=== PATIENT | male | born 1940 | race Caucasian/White ===

== ENCOUNTER 2018-10-04 00:08 | Emergency (ER) | payer MEDICARE ==
[2018-10-04] MEDS ORDERED: IPRATROPIUM/ALBUTEROL SULFATE 3 ML SOLUTION IH ONE (00:40)
[2018-10-04 01:17] LABS: BASOPHILS % (AUTO) 0.3 % (0.0-5.0); EOSINOPHILS % (AUTO) 0.6 % (0.0-8.0); HEMATOCRIT 41.5 % (42-54); LYMPHOCYTES % (AUTO) 24.4 % (21.0-51.0); MEAN CORPUSCULAR HEMOGLOBIN 33.1 pg (27.0-33.0); MEAN CORPUSCULAR HGB CONC 34.6 g/dL (32.0-36.0); MEAN CORPUSCULAR VOLUME 95.7 fL (79-99); MONOCYTES % (AUTO) 10.4 % (3.0-13.0); NEUTROPHILS % (AUTO) 64.3 % (40.0-77.0); NUCLEATED RED BLOOD CELLS 0.1 % (0.0-0.19); PLATELET COUNT (AUTO) 120 K/uL (130-400); RED BLOOD CELL COUNT(AUTO) 4.34 MIL/uL (4.50-6.20); RED CELL DISTRIBUTION WIDTH 12.9 % (11.0-15.5); WHITE BLOOD COUNT (AUTO) 3.8 K/uL (4.8-10.8)
[2018-10-04 01:30] LABS: CREATININE 0.9 mg/dL (0.5-1.5); POTASSIUM 4.5 mmol/L (3.5-5.1)
[2018-10-04 01:35] LABS: ALBUMIN 3.2 g/dL (3.5-5.0); TOTAL PROTEIN, SERUM 6.3 g/dL (6.0-8.3)
[2018-10-04] MEDS ORDERED: ALBUTEROL SULFATE 0.083% 2.5 MG/3 ML INH IH ONE ×2 (01:41→04:30)
[2018-10-04] MEDS ORDERED: OSELTAMIVIR PHOSPHATE 75 MG CAP ONE (04:35)
[2018-10-04] MEDS ORDERED: ONDANSETRON ODT 4 MG TAB ONE (04:36)
== END 2018-10-04 05:07 | disposition home or self-care (01) ==
LOC: EDH 00:08
DX: J10.1 Influenza due to other identified influenza virus with other respiratory manifestations (principal); I48.91 Unspecified atrial fibrillation; Z96.653 Presence of artificial knee joint, bilateral
CPT/HCPCS: 36415; 71045; 71046; 80053; 85025; 87804; 94640

== ENCOUNTER 2020-06-14 03:37 | Inpatient (IN) | payer MEDICARE ==
[~2020-06-14] VITALS: Ht 180.3 cm; Wt 84.2 kg
[2020-06-14 04:07] LABS: BASOPHILS % (AUTO) 0.3 % (0.0-5.0); EOSINOPHILS % (AUTO) 0.3 % (0.0-8.0); HEMATOCRIT 41.7 % (42-54); LYMPHOCYTES % (AUTO) 9.3 % (21.0-51.0); MEAN CORPUSCULAR HEMOGLOBIN 31.9 pg (27.0-33.0); MEAN CORPUSCULAR HGB CONC 32.6 g/dL (32.0-36.0); MEAN CORPUSCULAR VOLUME 97.7 fL (79-99); MONOCYTES % (AUTO) 5.2 % (3.0-13.0); NEUTROPHILS % (AUTO) 84.5 % (40.0-77.0); PLATELET COUNT (AUTO) 181 K/uL (130-400); RED BLOOD CELL COUNT(AUTO) 4.27 MIL/uL (4.50-6.20); WHITE BLOOD COUNT (AUTO) 7.7 K/uL (4.8-10.8)
[2020-06-14 04:16] LABS: CREATININE 1.2 mg/dL (0.5-1.5); POTASSIUM 4.8 mmol/L (3.5-5.1)
[2020-06-14 04:20] LABS: ALBUMIN 3.5 g/dL (3.5-5.0); BILIRUBIN,TOTAL 0.7 mg/dL (0.2-1.0); TOTAL PROTEIN, SERUM 7.4 g/dL (6.0-8.3)
[2020-06-14] MEDS ORDERED: ONDANSETRON HCL 4 MG/2 ML VIAL ONE (04:23)
[2020-06-14] MEDS ORDERED: MORPHINE SULFATE 2 MG/ML 1ML SYG ONE (04:23)
[2020-06-14] MEDS ORDERED: MORPHINE SULFATE 4 MG/1ML SYG ONE (05:33)
[2020-06-14] MEDS ORDERED: HYDROMORPHONE HCL 0.5 MG/0.5 ML ML ONE (07:00)
[2020-06-14] MEDS ORDERED: GUAIFENESIN-DM 200/20 MG 10 ML PO PRN (07:15)
[2020-06-14] MEDS ORDERED: ONDANSETRON HCL 4 MG/2 ML VIAL IVP PRN (07:15)
[2020-06-14] MEDS ORDERED: DiphenhydrAMINE HCL 50 MG/ML VIAL IV PRN (07:15)
[2020-06-14] MEDS ORDERED: ACETAMINOPHEN 650 MG SUPPOSITORY RC PRN (07:15)
[2020-06-14] MEDS ORDERED: HYDRALAZINE HCL 20 MG/ML VIAL IV PRN (07:15)
[2020-06-14] MEDS ORDERED: LACTULOSE 20 GM/30 ML UDCUP PO PRN (07:15)
[2020-06-14] MEDS ORDERED: HYDROMORPHONE 4MG/ML 1ML VIAL IVP PRN (07:15)
[2020-06-14] MEDS ORDERED: MAG HYDROX/AL HYDROX/SIMETH ES 30 ML SUSP UDCUP PO PRN (07:15)
[2020-06-14] MEDS ORDERED: NITROGLYCERIN 0.4 MG SL TAB SL PRN (07:15)
[2020-06-14] MEDS: SODIUM CHLORIDE 0.9% 1000ML 1,000 ML IV SCH ×2 (07:15→20:35)
[2020-06-14] MEDS ORDERED: ZOLPIDEM TARTRATE 5 MG TAB PO PRN (07:15)
[2020-06-14] MEDS ORDERED: MORPHINE SULFATE 4 MG/1ML SYG IV PRN (07:15)
[2020-06-14] MEDS ORDERED: HYDROMORPHONE HCL 0.5 MG/0.5 ML ML IVP PRN (07:30)
[2020-06-14] MEDS: ENOXAPARIN SODIUM 80 MG/0.8 ML SQ SCH ×2 (09:00→21:00)
[2020-06-14] MEDS: ENOXAPARIN SODIUM 1 MG/KG SQ SCH ×2 (09:00→21:00)
[2020-06-14 11:43] LABS: APPEARANCE,URINE Clear (CLEAR); BILIRUBIN,URINE Negative (NEGATIVE); COLOR,URINE Yellow (YELLOW); GLUCOSE, URINE (UA) Negative (NEGATIVE); KETONES,URINE Negative (NEGATIVE); LEUKOCYTE ESTERASE ,URINE Small (NEGATIVE); NITRATE,URINE Positive (NEGATIVE); OCCULT BLOOD,URINE Trace (NEGATIVE); PROTEIN,URINE Trace mg/dL (NEGATIVE)
[2020-06-14 12:12] LABS: BACTERIA,URINE Rare /HPF (None Seen); RBC,URINE 0-1 /HPF (0-1); SQUAMOUS EPITHELIAL CELL,UR Rare /HPF (0-2)
--- NOTE | 2020-06-14 16:49 | NUR ---
CHUYITA PLAN PATIENT IN ER UNABLE TO SEE PATIENT CALLED PATIENT PHONE NUMBER. TRIED TO CONFIRM WHO I WAS SPEAKING TO. PATIENT UPSET. CURSED AND HUNG UP. VILMA WILL CONTINUE TO FOLLOW. WILL TRY ONCE PATIENT HAS A ROOM. Addendum: 06/14/20 at 1651 by EUNICE ENRIQUEZ RN CM Amended: Links added.
[2020-06-14] MEDS ORDERED: IOHEXOL 350 MG/ML 100ML INFUS..BTL IV ONE (22:11)
[2020-06-15 06:10] LABS: BASOPHILS % (AUTO) 0.3 % (0.0-5.0); EOSINOPHILS % (AUTO) 2.5 % (0.0-8.0); HEMATOCRIT 42.3 % (42-54); LYMPHOCYTES % (AUTO) 12.5 % (21.0-51.0); MEAN CORPUSCULAR HEMOGLOBIN 32.2 pg (27.0-33.0); MEAN CORPUSCULAR HGB CONC 32.2 g/dL (32.0-36.0); MONOCYTES % (AUTO) 8.9 % (3.0-13.0); NEUTROPHILS % (AUTO) 75.7 % (40.0-77.0); PLATELET COUNT (AUTO) 139 K/uL (130-400); RED BLOOD CELL COUNT(AUTO) 4.23 MIL/uL (4.50-6.20); RED CELL DISTRIBUTION WIDTH 13.2 % (11.0-15.5); WHITE BLOOD COUNT (AUTO) 6.8 K/uL (4.8-10.8)
[2020-06-15 06:17] LABS: ALBUMIN 3.3 g/dL (3.5-5.0); CREATININE 1.7 mg/dL (0.5-1.5); POTASSIUM 5.1 mmol/L (3.5-5.1); TOTAL PROTEIN, SERUM 6.9 g/dL (6.0-8.3)
[2020-06-15] MEDS ORDERED: ONDANSETRON HCL 4 MG/2 ML VIAL ONE (07:28)
[2020-06-15] MEDS ORDERED: MORPHINE SULFATE 4 MG/1ML SYG ONE (07:29)
[2020-06-15 10:00] VITALS: BP 96/57
[2020-06-15] MEDS ORDERED: PHARMACY COMMUNICATION MISC SCH (10:00)
[2020-06-15] MEDS ORDERED: HEPARIN 25000 UNITS/250 ML D5W 250 ML IV PRN (10:15)
[2020-06-15] MEDS ORDERED: CEFTRIAXONE SODIUM 1 GM IVP SCH (12:45)
[2020-06-15] MEDS ORDERED: ENOXAPARIN SODIUM 80 MG/0.8 ML SQ SCH (13:00)
[2020-06-15] MEDS: SODIUM CHLORIDE 0.9% 1000ML 1,000 ML IV SCH ×2 (13:18→23:15)
--- NOTE | 2020-06-15 15:46 | NUR ---
CHUYITA PLAN VISITED WITH PATIENT. PATIENT SLEEPING. SINCE HE WAS UPSET YESTERDAY AND CUSSING. VILMA WILL CONTINUE TO FOLLOW. Addendum: 06/15/20 at 1547 by EUNICE ENRIQUEZ RN CM Amended: Links added.
[2020-06-15 16:40] VITALS: BP 124/72
[2020-06-15 20:00] VITALS: BP 123/79
[2020-06-15] MEDS ORDERED: HEPARIN SODIUM 5000UNIT/ML 1ML VIAL SQ PRN (20:00)
[2020-06-15 23:33] VITALS: BP 113/68
[2020-06-16] MEDS: HEPARIN 25000 UNITS/250 ML D5W 250 ML IV SCH ×2 (02:19→20:20)
[2020-06-16 03:21] VITALS: BP 98/61
[2020-06-16] MEDS: SODIUM CHLORIDE 0.9% 1000ML 1,000 ML IV SCH (04:22)
[2020-06-16 07:53] VITALS: BP 119/68
--- NOTE | 2020-06-16 08:45 | NUR ---
AM ASSESSMENT PT SITTING IN BED. A/O X 3. NO SOB. NO DISTRESS NOTED. DENIES CHEST PAIN OR DISCOMFORT. DENIES PALPITATIONS. TELE: SR. DENIES N/V AND/OR DIARRHEA. 0.9% NACL INFUSING @ 75 ML/HR. HEPARIN GTT @ 17 UNITS/KG/HR (14.1 ML/HR). PTT DUE @ 0800. BEDREST REINFORCED. INSTRUCTED TO CALL FOR ASSISTANCE. CALL GERMAINE W/IN REACH.
[2020-06-16] MEDS ORDERED: CEFTRIAXONE SODIUM 1 GM IVP SCH (09:00)
[2020-06-16 11:50] VITALS: BP 115/72
[2020-06-16 15:20] VITALS: BP 110/71
--- NOTE | 2020-06-16 16:57 | NUR ---
DCP CM met with pt this morning discussed dc plans. Pt is independent prior to admission, lives at home alone. Denies any equipments/services. Feels safe to go back home, still drives, arranges own needs. Pt verbalized he has a son that lives in [place], [place] [employer] [phone] in case of emergency. DC plan to home once stable. CM to continue to follow up. Addendum: 06/16/20 at 1658 by SOLE HELTON LVN CM Amended: Links added.
[2020-06-16 20:10] VITALS: BP 99/57
[2020-06-16] MEDS ORDERED: LEVOFLOXACIN 500 MG/D5W 100 ML 100 ML IV SCH (22:45)
[2020-06-16 23:12] VITALS: BP 109/66
[2020-06-17] VITALS (20 sets, daily range): BP systolic 107–142; BP diastolic 65–91
[2020-06-17 05:04] LABS: BASOPHILS % (AUTO) 0.3 % (0.0-5.0); EOSINOPHILS % (AUTO) 1.4 % (0.0-8.0); HEMATOCRIT 35.2 % (42-54); LYMPHOCYTES % (AUTO) 14.7 % (21.0-51.0); MEAN CORPUSCULAR HEMOGLOBIN 31.9 pg (27.0-33.0); MEAN CORPUSCULAR HGB CONC 32.7 g/dL (32.0-36.0); MEAN CORPUSCULAR VOLUME 97.8 fL (79-99); NEUTROPHILS % (AUTO) 72.4 % (40.0-77.0); PLATELET COUNT (AUTO) 158 K/uL (130-400); WHITE BLOOD COUNT (AUTO) 6.3 K/uL (4.8-10.8)
[2020-06-17 05:19] LABS: CREATININE 1.6 mg/dL (0.5-1.5); POTASSIUM 4.1 mmol/L (3.5-5.1)
[2020-06-17 05:20] LABS: INR 1.06 (0.85-1.15); PROTHROMBIN TIME 11.4 SEC (9.6-11.6)
--- NOTE | 2020-06-17 08:50 | NUR ---
PER SHEETING PULLER NURSE HEPRIN STOPPED AT 0645 TODAY
[2020-06-17] MEDS ORDERED: IODIXANOL 320 MG/ML 100 ML VIAL ONE (08:54)
[2020-06-17] MEDS ORDERED: LIDOCAINE HCL 1% MDV 50ML VIAL ONE (08:54)
[2020-06-17] MEDS: LEVOFLOXACIN 500 MG/D5W 100 ML 100 ML IV SCH (08:55)
[2020-06-17] MEDS ORDERED: FENTANYL CITRATE PF 50 MCG/1 ML 2ML VIAL ONE ×2 (10:05→21:46)
--- NOTE | 2020-06-17 16:03 | NUR ---
RD NOTIFICATION Pt admitted due to rt lower extremity DVT During admission pt was found to have elevated PSA with possible prostate cancer. Heparin d/c at 0645 on 06/17/20 as per EMR. Pt is currently NPO. Pt in AM received CLD and ate 100% PO Previous diet order HH- Vegan. Pt ate 100% as per EMR Pending biopsy, possible left nephrostomy tube and cystoscopy as per EMR Pt sated being an SOS vegan. Pt does not consume, oil, salt, sugar or any other animal product. Prior to admission pt denied lack of appetite or poor PO intake. Pt was encouraged to contact foodservice staff and make request for meals according to diet order Pt's BMI is adequate for age Pt stated he takes a mineral pill that contains Mg, Zinc, and Calcium Pt also takes B12 at home RD RECOMMENDATION: B12 supplementation Heart Healthy Vegan diet with no concentrated sweets Monitor PO intake RD will continue to follow pt's status LABS: NA 141, BUN 27, CREAT 1.6, GFR 44, ALB 3.3, TOT PRO 6.9, PSA 497 Addendum: 06/17/20 at [address] Amended: Links added.
--- NOTE | 2020-06-17 17:46 | NUR ---
FLEET ENEMA GIVEN X 1 AT 1615 ,PER STANDING ORDER TO GIVE 2 HRS PRIOR TO PROCEDURE
[2020-06-17] MEDS ORDERED: SUCCINYLCHOLINE 200MG/10ML SYR ONE (21:05)
[2020-06-17] MEDS ORDERED: LIDOCAINE PF 2% 5ML ABBOJECT ONE (21:05)
[2020-06-17] MEDS ORDERED: MIDAZOLAM HCL 1 MG/ML 2ML VIAL ONE (21:05)
[2020-06-17] MEDS ORDERED: ROCURONIUM 10MG/1ML SYR 10 MG/ML ML ONE (21:05)
[2020-06-17] MEDS ORDERED: PROPOFOL 10 MG/ML 20ML VIAL IV ONE (21:05)
[2020-06-17] MEDS: SODIUM CHLORIDE 0.9% 1000ML 1,000 ML IV SCH (21:05)
[2020-06-17] MEDS ORDERED: ONDANSETRON HCL 4 MG/2 ML VIAL ONE (21:05)
[2020-06-17] MEDS ORDERED: EPHEDRINE SULFATE 50 MG/ML AMPULE ONE (21:27)
[2020-06-18] VITALS (11 sets, daily range): BP systolic 100–133; BP diastolic 51–79
--- NOTE | 2020-06-18 17:31 | NUR ---
I HAVE SPOKEN TO DR GRAY ON THE PHONE AND GOT OK TO RESTART BLOOD THINNERS AND INFORMED DR SRIVASTAVA AND ORDERS RECEIVED FROM HIM; I HAVE ALSO CALLED DR AYERS AND LEFT A MESSAGE ON HIS PHONE IN REGARDS TO BLOOD THINNERS AND D/C TREATMENT; PENDING CALL BACK.
[2020-06-18] MEDS: APIXABAN 5 MG TABLET PO SCH (20:36)
[2020-06-19 03:42] VITALS: BP 120/75
[2020-06-19 07:50] VITALS: BP 126/78
[2020-06-19] MEDS: LEVOFLOXACIN 500 MG/D5W 100 ML 100 ML IV SCH (11:29)
[2020-06-19] MEDS: APIXABAN 5 MG TABLET PO SCH ×2 (11:30→21:32)
[2020-06-19 11:44] VITALS: BP 133/89
--- NOTE | 2020-06-19 12:00 | NUR ---
cm note discussed with pt dc planning and his concerns about doing the nephrostomy drain care, he states that he knows how to empty it, however, he does not reach his back to cover the tube when he showers. states he lives alone,informed that if he wishes we can ask regarding possible home health assist or private pay sistters at home, pt states he does not want anyone coming in to his home. informed jared primary nurse to go over process for caring for nephrostomy tube with pt, as he has requested, and states dc plan is to home, states doesn't feel ready to go home today. updated primary nurse .
--- NOTE | 2020-06-19 14:00 | NUR ---
cm note spoke to pt and provided eliquis coupons as requested by , for DVT tx. instructed to present rx coupon to pharmacy when filling his rx. for eliquis. pt verbalizes understanding.
--- NOTE | 2020-06-19 14:50 | NUR ---
i spoke to dr duarte on the phone and he in regards to pt's pink colored urine and he stated it was perfectly normal for pt to have blood tinged urine; he also stated the pt would need to keep the nephrostomy bag for quite a while due to his enlarged lympnodes causing obstrution; also he stated that pt should be given a perscription for cassadex when d/c and ok from his standpoint to leave today. that he will need to f/u w/ a urologist and oncologist if he does move back to [place] instead of seeking treatment here.
--- NOTE | 2020-06-19 15:03 | NUR ---
i have given pt handouts on aftercare for a nephrostomy tube and gone over with him how to drain it and also discussed treatment for dvt; i have asked sw to assist him with getting coupon for sanderis.
[2020-06-19 16:21] VITALS: BP 124/82
[2020-06-19] MEDS ORDERED: ACETAMINOPHEN 325 MG TAB ONE (18:40)
[2020-06-19] MEDS ORDERED: ACETAMINOPHEN 325 MG TAB PO PRN (18:45)
[2020-06-19 19:55] VITALS: BP 139/94
[2020-06-20 00:39] VITALS: BP 119/76
[2020-06-20 03:51] VITALS: BP 129/80
--- NOTE | 2020-06-20 04:28 | NUR ---
TYLENOL Pt given tylenol this time for c/o of pain to his left side.
--- NOTE | 2020-06-20 05:28 | NUR ---
MED EFFECT Pt resting quietly,denies pain.
[2020-06-20 07:00] VITALS: BP 124/94
[2020-06-20] MEDS: APIXABAN 5 MG TABLET PO SCH (10:48)
[2020-06-20 11:00] VITALS: BP 133/80
[2020-06-20 13:29] LABS: HEMATOCRIT 36.3 % (42-54); MEAN CORPUSCULAR HGB CONC 32.8 g/dL (32.0-36.0); MEAN CORPUSCULAR VOLUME 97.6 fL (79-99); RED BLOOD CELL COUNT(AUTO) 3.72 MIL/uL (4.50-6.20); WHITE BLOOD COUNT (AUTO) 4.4 K/uL (4.8-10.8)
[2020-06-20 13:40] LABS: POTASSIUM 3.9 mmol/L (3.5-5.1)
[2020-06-20] MEDS ORDERED: APIX5TAB PO (14:26)
[2020-06-20 16:00] VITALS: BP 155/95
--- NOTE | 2020-06-20 18:30 | NUR ---
DISCHARGE INSTRUCTIONS GIVEN ABOUT MAINTENANCE OF LEFT NEPHROSTOMY TUBE, DRAINING AND DOCUMENTING FOR DR GRAY FOR FOLLOW UP VISIT SCHEDULED FOR 07/12/2020 1:[address] AYERS AT BEDSIDE, WILL CALL IN MEDICATION IN ADDITION TO MEDS E-SCRIPT SENT TO [facility]. PIV REMOVED AND INTACT, DISCHARGED HOME TO FAMILY VEHICLE VIA WHEELCHAIR.
--- NOTE | 2020-06-21 10:01 | NUR ---
TRANSITIONAL CARE - POST-DISCHARGE NOTE NO ANSWER. I called the patient at the number on file. Left voicemail identifying myself and requesting a callback.
== END 2020-06-20 19:00 | disposition home or self-care (01) | DRG 723 ==
LOC: EDH 03:37 → INTOOBSV 05:38 → EDHIP 05:38 → OBSVTOIN 05:38 → 4CH 06-15 10:05
PROVIDERS: ADMIT Hospitalist; ATTEND Hospitalist
PROC: 0T9430Z Drainage of Left Kidney Pelvis with Drainage Device, Percutaneous Approach (ICD-10-PCS; 2020-06-17)
PROC: 0VB03ZX Excision of Prostate, Percutaneous Approach, Diagnostic (ICD-10-PCS; principal; 2020-06-17 21:15)
PROC: 0TJB8ZZ Inspection of Bladder, Via Natural or Artificial Opening Endoscopic (ICD-10-PCS; 2020-06-17 21:15)
DX: C61 Malignant neoplasm of prostate (principal); N17.9 Acute kidney failure, unspecified; C79.51 Secondary malignant neoplasm of bone; E44.1 Mild protein-calorie malnutrition; I82.411 Acute embolism and thrombosis of right femoral vein; N13.6 Pyonephrosis; J98.11 Atelectasis; N18.2 Chronic kidney disease, stage 2 (mild); K80.20 Calculus of gallbladder without cholecystitis without obstruction; D70.9 Neutropenia, unspecified; I25.10 Atherosclerotic heart disease of native coronary artery without angina pectoris; I48.91 Unspecified atrial fibrillation; K76.89 Other specified diseases of liver; R59.0 Localized enlarged lymph nodes; R31.9 Hematuria, unspecified; N40.0 Benign prostatic hyperplasia without lower urinary tract symptoms; Z79.01 Long term (current) use of anticoagulants; Z68.25 Body mass index [BMI] 25.0-25.9, adult
CPT/HCPCS: 10030; 36415; 50432; 71045; 74176; 74177; 76856; 76942; 78306; 80048; 80053; 81001; 82150; 82550; 83690; 84153; 84484; 85025; 85027; 85610; 85730; 87077; 87088; 87186; 93005; 93971; A9503; C1729; C1894; G0378; J0330; J0696; J1170; J1644; J1650; J1956; J2001; J2250; J2270; J2405; J2704; J3010; J3490; J7120; Q9967

== ENCOUNTER → 2020-10-24 | Outpatient (CLI) | payer MEDICARE ==
[~2020-10-24] MED LIST: APIX5TAB PO
== END | disposition home or self-care (01) ==
LOC: RAH 07:39
PROVIDERS: ATTEND Urology
DX: C61 Malignant neoplasm of prostate (principal)
CPT/HCPCS: 74176

== ENCOUNTER 2020-11-09 06:47 | Day surgery (SDC) | payer MEDICARE ==
[2020-11-07 14:45] LABS: BASOPHILS % (AUTO) 0.5 % (0.0-5.0); EOSINOPHILS % (AUTO) 2.3 % (0.0-8.0); HEMATOCRIT 41.7 % (42-54); LYMPHOCYTES % (AUTO) 31.5 % (21.0-51.0); MEAN CORPUSCULAR HEMOGLOBIN 32.1 pg (27.0-33.0); MEAN CORPUSCULAR HGB CONC 32.6 g/dL (32.0-36.0); MEAN CORPUSCULAR VOLUME 98.3 fL (79-99); MONOCYTES % (AUTO) 7.4 % (3.0-13.0); NEUTROPHILS % (AUTO) 58.1 % (40.0-77.0); PLATELET COUNT (AUTO) 215 K/uL (130-400); RED BLOOD CELL COUNT(AUTO) 4.24 MIL/uL (4.50-6.20); RED CELL DISTRIBUTION WIDTH 13.4 % (11.0-15.5); WHITE BLOOD COUNT (AUTO) 4.4 K/uL (4.8-10.8)
[2020-11-07 14:45] LABS: APPEARANCE,URINE Clear (CLEAR); BILIRUBIN,URINE Negative (NEGATIVE); COLOR,URINE Yellow (YELLOW); GLUCOSE, URINE (UA) Negative (NEGATIVE); KETONES,URINE Negative (NEGATIVE); LEUKOCYTE ESTERASE ,URINE Moderate (NEGATIVE); NITRATE,URINE Positive (NEGATIVE); OCCULT BLOOD,URINE Negative (NEGATIVE); PH,URINE 6.5 (5.0-8.0); PROTEIN,URINE Negative (NEGATIVE); UROBILINOGEN,URINE 0.2 mg/dL (0.2-1.0)
[2020-11-07 14:54] LABS: CREATININE 1.1 mg/dL (0.5-1.5); POTASSIUM 4.5 mmol/L (3.5-5.1)
[2020-11-07 15:13] LABS: RBC,URINE 0-1 /HPF (0-1)
[2020-11-07 15:14] LABS: BACTERIA,URINE Few /HPF (None Seen); SQUAMOUS EPITHELIAL CELL,UR Rare /HPF (0-2)
[2020-11-08 12:33] VITALS: BP 116/74
[~2020-11-09] VITALS: Ht 180.3 cm; Wt 84.7 kg
[2020-11-09 07:16] VITALS: BP 115/75
[2020-11-09] MEDS ORDERED: CEFTRIAXONE SODIUM 1 GM IVP ONE (08:00)
[2020-11-09 08:01] LABS: INR 1.05 (0.85-1.15); PROTHROMBIN TIME 11.4 SEC (9.6-11.6)
[2020-11-09 08:03] LABS: PARTIAL THROMBOPLASTIN TIME 25.9 SEC (26.3-35.5)
[2020-11-09] MEDS ORDERED: LIDOCAINE HCL 1% MDV 50ML VIAL ONE (08:23)
[2020-11-09] MEDS ORDERED: IODIXANOL 320 MG/ML 100 ML VIAL ONE (08:23)
[2020-11-09] MEDS ORDERED: CEFTRIAXONE SODIUM 1 GM ONE (09:07)
[2020-11-09] MEDS ORDERED: MIDAZOLAM HCL 1 MG/ML 2ML VIAL ONE (10:37)
[2020-11-09] MEDS ORDERED: FENTANYL CITRATE PF 50 MCG/1 ML 2ML VIAL ONE (10:37)
[2020-11-09] MEDS ORDERED: OCTYL 2-CYANOACRYLATE 1 EACH TP ONE (10:57)
== END 2020-11-09 11:08 | disposition home or self-care (01) ==
LOC: DAH 06:47
PROVIDERS: ATTEND Urology
DX: N13.1 Hydronephrosis with ureteral stricture, not elsewhere classified (principal); Z20.822 Contact with and (suspected) exposure to COVID-19; I48.91 Unspecified atrial fibrillation; Z79.01 Long term (current) use of anticoagulants; Z79.899 Other long term (current) drug therapy; Z85.46 Personal history of malignant neoplasm of prostate
CPT/HCPCS: 36415 ×2; 50435; 80048; 81001; 84153; 85025; 85610; 85730; 87077; 87088; 87186; 93005; A4215; A4216; A4221; A4222; A4223 ×3; A4606; A4663; A6260; C1729; C1769; C9803; J0696; J1644; J2250; J3010; J3490; Q9967; U0003

== ENCOUNTER → 2020-12-01 | Outpatient (CLI) | payer MEDICARE | END | disposition home or self-care (01) | LOC: RAH 09:50 | PROVIDERS: ATTEND Urology | DX: C61 Malignant neoplasm of prostate (principal); N28.1 Cyst of kidney, acquired; N13.39 Other hydronephrosis; Z90.79 Acquired absence of other genital organ(s) | CPT/HCPCS: 76770 ==